=== PATIENT | male | born 1960 | race Caucasian/White ===

== ENCOUNTER 2020-01-18 07:57 | Outpatient (REF) | payer OTHER, SELFPAY ==
[2020-01-18 11:52] LABS: Alanine Aminotransferase 56 U/L (0-40); Albumin Level 4.6 g/dL (3.5-5.0); Alkaline Phosphatase 92 U/L (39-117); Aspartate Amino Transferase 49 U/L (5-37); Bilirubin Direct 0.3 mg/dL (0.0-0.5); Bilirubin Total 0.6 mg/dL (0.0-1.0); Cholesterol 148 mg/dL; HDL Cholesterol 46 mg/dL; LDL Cholesterol Calculated 85 mg/dl; Total Protein 7.1 g/dL (6.5-8.0); Triglycerides 87 mg/dL
== END 2020-01-18 07:58 | disposition home or self-care (01) ==
LOC: HO.HMGCLDS 07:57
PROVIDERS: PCP Internal Medicine; Visit Provider Internal Medicine
DX: E78.5 Hyperlipidemia, unspecified (principal)
CPT/HCPCS: 80061; 80076

== ENCOUNTER 2020-04-05 07:54 | Outpatient (REF) | payer OTHER, SELFPAY | END 2020-04-05 07:55 | disposition home or self-care (01) | LOC: HO.HMGCLDS 07:54 | PROVIDERS: PCP Internal Medicine; Visit Provider Internal Medicine | DX: Z20.822 Contact with and (suspected) exposure to COVID-19 (principal) | CPT/HCPCS: 36415; C9803; U0003; U0005 ==

== ENCOUNTER 2020-06-04 07:32 | Outpatient (REF) | payer OTHER, SELFPAY ==
[2020-06-04 11:59] LABS: Alanine Aminotransferase 36 U/L (0-40); Anion Gap 14 (12-20); Aspartate Amino Transferase 32 U/L (5-37); Blood Urea Nitrogen 16 mg/dL (9-16); Calcium 9.5 mg/dL (8.4-10.2); Carbon Dioxide 25 mmol/L (22-29); Chloride 102 mmol/L (96-108); Cholesterol 196 mg/dL; Estimated Glomerular Filt Rate > 60; Glucose Fasting 107 mg/dL (60-99); HDL Cholesterol 47 mg/dL; LDL Cholesterol Calculated 121 mg/dl; Potassium 4.3 mmol/L (3.3-5.1); Sodium 137 mmol/L (135-145); Triglycerides 144 mg/dL
== END 2020-06-04 07:33 | disposition home or self-care (01) ==
LOC: HO.HMGCLDS 07:32
PROVIDERS: PCP Internal Medicine; Visit Provider Internal Medicine
DX: E66.9 Obesity, unspecified (principal); E78.5 Hyperlipidemia, unspecified; I10 Essential (primary) hypertension
CPT/HCPCS: 36415; 80048; 80061; 84450; 84460

== ENCOUNTER 2020-11-19 06:46 | Outpatient (REF) | payer OTHER, SELFPAY ==
[2020-11-19 12:17] LABS: Alanine Aminotransferase 57 U/L (0-40); Anion Gap 11 (12-20); Aspartate Amino Transferase 41 U/L (5-37); Blood Urea Nitrogen 14 mg/dL (9-16); Calcium 9.5 mg/dL (8.4-10.2); Carbon Dioxide 27 mmol/L (22-29); Chloride 105 mmol/L (96-108); Cholesterol 211 mg/dL; Estimated Glomerular Filt Rate > 60; Glucose Fasting 117 mg/dL (60-99); HDL Cholesterol 44 mg/dL; LDL Cholesterol Calculated 136 mg/dl; Potassium 4.8 mmol/L (3.3-5.1); Sodium 138 mmol/L (135-145); Triglycerides 155 mg/dL
== END 2020-11-19 06:47 | disposition home or self-care (01) ==
LOC: HO.HMGCLDS 06:46
PROVIDERS: PCP Internal Medicine; Visit Provider Internal Medicine
DX: E66.9 Obesity, unspecified (principal); E78.5 Hyperlipidemia, unspecified; I10 Essential (primary) hypertension
CPT/HCPCS: 36415; 80048; 80061; 84450; 84460

== ENCOUNTER 2021-04-15 07:28 | Outpatient (REF) | payer OTHER, SELFPAY ==
[2021-04-15 11:45] LABS: Alanine Aminotransferase 71 U/L (0-40); Aspartate Amino Transferase 47 U/L (5-37); Cholesterol 203 mg/dL; HDL Cholesterol 41 mg/dL; LDL Cholesterol Calculated 130 mg/dl; Triglycerides 162 mg/dL
[2021-04-15 12:19] LABS: Estimated Average Glucose 128 mg/dL; Hemoglobin A1c % 6.1 %
== END 2021-04-15 07:29 | disposition home or self-care (01) ==
LOC: HO.HMGCLDS 07:28
PROVIDERS: Visit Provider Internal Medicine
DX: E78.5 Hyperlipidemia, unspecified (principal); I10 Essential (primary) hypertension; R73.01 Impaired fasting glucose
CPT/HCPCS: 36415; 80061; 83036; 84450; 84460

== ENCOUNTER 2021-10-24 15:03 | Outpatient (REF) | payer OTHER, SELFPAY ==
--- NOTE | ~2021-10-24 | XR_ITS ---
EXAMINATION: XR ANKLE, LEFT CLINICAL INFORMATION: Pain in the left foot. COMPARISON: None. TECHNIQUE: AP, lateral, and mortise views of the left ankle. FINDINGS: Small plantar calcaneal spur. Bones joints and soft tissues otherwise unremarkable. XR/XR ankle LT min 3V IMPRESSION: Small plantar calcaneal spur. Otherwise unremarkable.
== END 2021-10-24 15:04 | disposition home or self-care (01) ==
LOC: HO.HMGCX 15:03
PROVIDERS: PCP Internal Medicine; Visit Provider Internal Medicine
DX: M79.672 Pain in left foot (principal)
CPT/HCPCS: 73610

== ENCOUNTER 2021-12-09 07:35 | Outpatient (REF) | payer OTHER, SELFPAY ==
[2021-12-09 12:23] LABS: Alanine Aminotransferase 51 U/L (0-40); Albumin Level 4.5 g/dL (3.5-5.0); Alkaline Phosphatase 84 U/L (39-117); Anion Gap 16 (12-20); Aspartate Amino Transferase 36 U/L (5-37); Bilirubin Total 0.4 mg/dL (0.0-1.0); Blood Urea Nitrogen 15 mg/dL (9-16); Calcium 9.5 mg/dL (8.4-10.2); Carbon Dioxide 23 mmol/L (22-29); Chloride 104 mmol/L (96-108); Cholesterol 193 mg/dL; Estimated Glomerular Filt Rate > 60; Glucose Fasting 108 mg/dL (60-99); HDL Cholesterol 48 mg/dL; LDL Cholesterol Calculated 124 mg/dl; Potassium 4.6 mmol/L (3.3-5.1); Sodium 138 mmol/L (135-145); Triglycerides 109 mg/dL
[2021-12-09 12:27] LABS: Vitamin D 25-OH Total 26.1 ng/mL (>30)
[2021-12-09 12:29] LABS: Estimated Average Glucose 128 mg/dL; Hemoglobin A1c % 6.1 %
== END 2021-12-09 07:36 | disposition home or self-care (01) ==
LOC: HO.HMGCLDS 07:35
PROVIDERS: PCP Internal Medicine; Visit Provider Internal Medicine
DX: Z00.01 Encounter for general adult medical examination with abnormal findings (principal); E78.5 Hyperlipidemia, unspecified; E66.9 Obesity, unspecified; I10 Essential (primary) hypertension; R73.01 Impaired fasting glucose
CPT/HCPCS: 36415; 80053; 80061; 82306; 83036

== ENCOUNTER 2022-04-18 07:33 | Outpatient (REF) | payer OTHER, SELFPAY ==
[2022-04-18 12:34] LABS: Estimated Average Glucose 128 mg/dL; Hemoglobin A1c % 6.1 %
[2022-04-18 12:55] LABS: Alanine Aminotransferase 78 U/L (0-40); Anion Gap 15 (12-20); Aspartate Amino Transferase 59 U/L (5-37); Blood Urea Nitrogen 16 mg/dL (9-16); Calcium 9.1 mg/dL (8.4-10.2); Carbon Dioxide 24 mmol/L (22-29); Chloride 104 mmol/L (96-108); Cholesterol 203 mg/dL; Estimated Glomerular Filt Rate > 60; Glucose Fasting 109 mg/dL (60-99); HDL Cholesterol 48 mg/dL; LDL Cholesterol Calculated 140 mg/dl; Potassium 4.3 mmol/L (3.3-5.1); Sodium 139 mmol/L (135-145); Triglycerides 76 mg/dL
== END 2022-04-18 07:34 | disposition home or self-care (01) ==
LOC: HO.HMGCLDS 07:33
PROVIDERS: PCP Internal Medicine; Visit Provider Internal Medicine
DX: E55.9 Vitamin D deficiency, unspecified (principal); E66.9 Obesity, unspecified; E78.5 Hyperlipidemia, unspecified; R73.01 Impaired fasting glucose; I10 Essential (primary) hypertension
CPT/HCPCS: 36415; 80048; 80061; 83036; 84450; 84460

== ENCOUNTER 2023-04-03 06:03 | Outpatient (REF) | payer OTHER, SELFPAY ==
[2023-04-03 10:44] LABS: Estimated Average Glucose 123 mg/dL; Hemoglobin A1c % 5.9 % (<6.0)
[2023-04-03 11:14] LABS: Alanine Aminotransferase 59 U/L (0-40); Anion Gap 14 (12-20); Aspartate Amino Transferase 44 U/L (5-37); Blood Urea Nitrogen 12 mg/dL (9-16); Calcium 9.6 mg/dL (8.4-10.2); Carbon Dioxide 24 mmol/L (22-29); Chloride 106 mmol/L (96-108); Cholesterol 149 mg/dL (<200); Estimated Glomerular Filt Rate > 60; Glucose Fasting 124 mg/dL (60-99); HDL Cholesterol 49 mg/dL (>40); LDL Cholesterol Calculated 85 mg/dL (<100); Potassium 4.4 mmol/L (3.3-5.1); Sodium 140 mmol/L (135-145); Triglycerides 76 mg/dL (<150)
[2023-04-03 11:30] LABS: Vitamin D 25-OH Total 32.6 ng/mL (>30)
== END 2023-04-03 06:04 | disposition home or self-care (01) ==
LOC: HO.HMGCLDS 06:03
PROVIDERS: PCP Internal Medicine; Visit Provider Internal Medicine
DX: I10 Essential (primary) hypertension (principal); R73.01 Impaired fasting glucose; E66.9 Obesity, unspecified; E78.5 Hyperlipidemia, unspecified; E55.9 Vitamin D deficiency, unspecified
CPT/HCPCS: 36415; 80048; 80061; 82306; 83036; 84450; 84460

== ENCOUNTER 2023-04-06 11:29 | Outpatient (AMB) | payer OTHER, SELFPAY ==
[2023-04-06 12:00] VITALS: BP 120/72; PULSE 65; O2SAT 95; BMI 32.6
--- NOTE | 2023-04-06 12:00 | A.OFFPC_ITS ---
Vital Signs 04/06/23 12:00 Height 5 ft 4 in Weight 190 lb BMI 32.6 BP 120/72 Blood Pressure Location Rt brachial Position Sitting Pulse 65 Pulse Source Pulse Oximeter Pulse Oximetry (%) 95 Oxygen Delivery Method Room Air Intake Visit Reasons: Followup BP Intake Note: Pt is here today for his b/p f/u Allergies No Known Allergies Allergy (Verified 04/06/23 12:27) Medication List - Last Reconciled 04/06/23 by Dalila Vincent MD diclofenac sodium 75 mg PO BID lisinopril 5 mg PO DAILY rosuvastatin 5 mg PO DAILY Tobacco use date assessed: 04/06/23 Dental Screening Dental Screen Date: 04/06/23 Did you have a dental visit in the last 12 months?: No Was dental information given to patient?: No HPI Followup BP HPI Details 63-year-old male with hypertension hyper lipidemia currently here for follow-up. Takes lisinopril 5 mg daily and rosuvastatin 5 mg once a day. Has been compliant with diet. Recent fasting labs showed fasting lipids and electrolytes and renal function are all within normal limits. He had elevations in his fasting glucose, but hemoglobin A1c came back at 5.9%. Has been feeling well except for recurrent pain and stiffness in both knees, which is progressively getting worse. There are times that it feels like his knees would give out while walking. 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 [facility] Medical History (Updated 04/06/23 @ 12:38 by Dalila Vincent MD) Chronic pain of both knees Vitamin D deficiency COVID-19 vaccination declined Impaired fasting glucose Obesity (BMI 30.0-34.9) Essential hypertension Dyslipidemia H/O fracture of forearm Surgical History H/O inguinal hernia repair Family History Father No problems noted. Mother No problems noted. Brother Hx of myocardial infarction Social History Housing: Apartment Alcohol intake: never Patient Tobacco Use Status: Never used Tobacco e-Cigarette/Vaping Use: Never Used service: No Current occupational status: employed Cognitive needs: No Hearing needs: No Vision needs: No Questionnaire PHQ-9 Over the last 2 weeks, how often have you been bothered by any of the following problems? 1. Little interest or pleasure in doing things: not at all 2. Feeling down, depressed, or hopeless: not at all 3. Trouble falling or staying asleep, or sleeping too much: not at all 4. Feeling tired or having little energy: not at all 5. Poor appetite or overeating: not at all 6. Feeling bad about yourself - or that you are a failure or have let yourself or your family down: not at all 7. Trouble concentrating on things, such as reading the newspaper or watching television: not at all 8. Moving or speaking so slowly that other people could have noticed. Or the opposite - being so fidgety or restless that you have been moving around a lot more than usual: not at all 9. Thoughts that you would be better off or of hurting yourself in some way: not at all Total score: 0 Depression Screening Interpretation: Negative Depression Screening Done: Yes 66264 - PHQ-9 Billing: Yes Source: Developed by Drs. Triston Ball, Kelsey Craft, Jorge Lezama and colleagues, with an educational lance from [employer]. Thrive Questionnaire Date Thrive assessed: 04/06/23 I am a: Patient What is your living situation today?: I have a steady place to live Within the past 12 months, did the food you bought not last and you didn't have the money to get more?: Never true Within the past 12 months, did you worry whether your food would run out before you got money to buy more?: Never true Do you have trouble paying for medicines?: No Do you have trouble getting transportation to medical appointments?: No Do you have trouble paying your heating and electricity bill?: No Do you have trouble taking care of your child, family member or friend?: No Do you have trouble with day-to-day activities such as bathing, preparing meals, shopping, managing finances, etc.?: No Are you currently unemployed and looking for a job?: No Are you interested in more education?: No THRIVE Score: 0 AUDIT C Alcohol Use Questionnaire (AUDIT-C) 1. How often do you have a drink containing alcohol?: Never Total Score: 0 LUIS-7 AMB Questionnaire LUIS-7 Date LUIS - 7 assessed: 04/06/23 Feeling nervous, anxious, or on edge: 0 = Not at all Not being able to stop or control worryin = Not at all Worrying too much about different things: 0 = Not at all Trouble relaxin = Not at all Being so restless that it is hard to sit still: 0 = Not at all Becoming easily annoyed or irritable: 0 = Not at all Feeling afraid as if something awful might happen: 0 = Not at all Total LUIS-7 score (0-4 normal; 5-9 mild; 10-14 moderate; 15-21 severe): 0 Source: Developed by Drs. Triston Ball, Kelsey Craft, Jorge Lezama and colleagues, with an educational lance from [employer]. LUIS-7 Assessment Billing LUIS-7 Assessment Tool: LUIS-7 Assessment 94613 Review of Systems Const Denies body aches, Denies fatigue, Denies fever(s), Denies headache(s) and Denies weakness Eyes Denies change in vision ENT Denies dizziness, Denies headache(s) and Denies nasal congestion Card Denies chest pain, Denies lightheadedness, Denies palpitations and Denies dyspnea Resp Denies chest congestion, Denies cough, Denies dyspnea and Denies wheezing GI Denies abdominal pain, Denies change in bowel habits and Denies heartburn Denies dysuria, Denies urinary frequency and Denies urinary urgency Musc Reports as per HPI, Denies myalgias and Reports stiffness Neuro Denies dizziness, Denies headache(s) and Denies weakness Psych Reports no additional complaints Endo Denies fatigue, Denies polydipsia, Denies polyuria and Denies palpitations Sesar/Lymph Denies easy bruising Aller/Immun Denies seasonal rhinorrhea and Denies wheezing Physical exam (Primary Care) Vital Signs: Last Vital Signs Pulse 65 04/06/23 12:00 BP 120/72 04/06/23 12:00 Pulse Ox 95 04/06/23 12:00 Oxygen Delivery Method Room Air 04/06/23 12:00 BMI result Body Mass Index 32.6 BMI Assessment/Plan discussion: High BMI High, discussed plan: lifestyle, weight reduction, dietary and physical activity Tobacco/Smoking Status: Tobacco use Status Tobacco use date assessed 04/06/23 04/06/23 12:06 Patient Tobacco Use Status Never used Tobacco 04/06/23 12:01 e-Cigarette/Vaping Use Never Used 04/06/23 12:01 PHQ-9: PHQ-9 Score PHQ-9: Total score 0 04/06/23 12:32 Depression Screening Interpretation: Negative Thrive Assessment: Date of Thrive Assessment Date Thrive assessed 04/06/23 04/06/23 12:06 Const General: no acute distress and alert Nutritional Appearance: obese Orientation/consciousness: patient oriented x3 HENMT Face and sinus: Yes face symmetric Mouth: Normal oral and palatal mucosa present and moist mucous membranes Eyes General: appearance normal, both eyes and all related structures Neck Neck: Yes full ROM, Yes no lymphadenopathy and Yes supple Thyroid: Thyroid normal Resp Effort & Inspection: normal respiratory effort and able to speak in complete sentences Auscultation: clear to auscultation bilaterally Cardio Other: S1-S2 present regular rate and rhythm GI Other: Normal bowel sounds, soft, obese, nontender, no mass palpated Back/Spine/Pelvis Other: No CVA or back tenderness Neuro General: patient oriented x3, gait normal, moves all extremities, Normal light touch and pain sensation, no focal motor deficits and CN's II-XI intact bilaterally Extrem General: Yes full ROM, Yes no joint enlargement, Yes no clubbing, cyanosis or edema, Yes no calf tenderness and Yes normal gait Right lower extremity: knee Details: crepitus Location: at the patella Left lower extremity: knee Details: crepitus Location: at the patella Results Reviewed Results Reviewed: RUN: 04/06/23 1227 PAGE 1 [facility] [address] [place] [id number] Garage Manager: Aníbal Andersen M.D. Specimen Inquiry Name: Triston Machuca Age/Sex: 63/M : 1960 Unit#: [id number] Attend Dr: Dalila Vincent MD Re04/03/23 Status: DEP REF [facility] Disch: SPEC : [id number] OWEN: 04/03/23 STATUS: COMP REQ : [id number] RECD: 04/03/23-[address]: Dalila Vincent MD COMP: 04/03/23 ENTERED: 04/03/[address]: ORDERED: Met Prof Fast, AST, ALT, Lipid Panel, Vitamin D 25-OH Test Result Flag Reference Sodium 140 135-145 mmol/L Potassium 4.4 3.3-5.1 mmol/L CL 106 96-108 mmol/L CO2 24 22-29 mmol/L Gap 14 12-20 BUN 12 9-16 mg/dL Creat 0.92 0.5-1.4 mg/dL EGFR > 60 NOTE: For -[place] individuals, multiply the result by 1.210. Chronic Kidney Disease: Estimated GFR < 60 mL/min/1.73m2 Severe Kidney Disease: Estimated GFR < 15 mL/min/1.73m2 FBS 124 H 60-99 mg/dL A fasting glucose from 100-125 mg/dl is considered impaired (pre-diabetes). CA 9.6 8.4-10.2 mg/dL AST (GOT) 44 H 5-37 U/L ALT (GPT) 59 H 0-40 U/L Triglyceride 76 <150 mg/dL Desirable Triglyceride: less than 150 mg/dL Borderline High Triglyceride 150-199 mg/dL High Triglyceride: 200-499 mg/dL Very High Triglyceride: greater than or equal to 5OO mg/dL Cholesterol 149 <200 mg/dL Desirable Cholesterol: less than 200 mg/dL Borderline High Cholesterol: 200-239 mg/dL High Cholesterol: greater than 239 mg/dL LDL Calculated 85 <100 mg/dL Desirable LDL: less than 100 mg/dL Near Optimal/Above Optimal LDL: 110-129 mg/dL Borderline High LDL: 130-159 mg/dL High LDL: 160-189 mg/dL Very High LDL: greater than or equal to 190 mg/dL HDL 49 >40 mg/dL Desirable HDL: greater than 40 mg/dL Note: This HDL assay may give artificially low results in patients with liver disease. Vit D 25-OH Tot 32.6 >30 ng/mL Health Based Reference Values* < 20 ng/mL Deficient 20-30 ng/mL Insufficient > 30 ng/mL Sufficient Laboratory Tests 04/03/23 06:24 Estimat Average Glucose 123 Hemoglobin A1c % 5.9 Assessment and Plan Assessment & Plan (1) Essential hypertension: Code(s): I10 - Essential (primary) hypertension Plan: Blood pressure at goal of less than 130/80. Continue with lisinopril 5 mg once a day in a.m. with breakfast. Reinforced importance of following a low sodium diet, getting regular exercise, and lowering stress levels. (2) Dyslipidemia: Code(s): E78.5 - Hyperlipidemia, unspecified Plan: Reviewed recent fasting lipid profile with patient with levels within normal limits . Continue with rosuvastatin 5 mg once a day , in addition to adherence to low-cholesterol diet and regular exercise, at least 30 minutes 3 to 4 times a week. Advised patient to make healthy food choices, eat more fruits, vegetables, whole grains, wild caught fish and low-fat dairy. Limit amount of meat and fried or fatty food products, as well as processed foods and fast foods. Follow-up scheduled with repeat fasting lipid panel in 9 months. (3) Chronic pain of both knees: Code(s): M25.561 - Pain in right knee; M25.562 - Pain in left knee; G89.29 - Other chronic pain Plan: Ordered x-ray of both knees, referred for orthopedic consult. May continue taking Tylenol arthritis every 6 hours as needed for pain and reserve diclofenac tablets only as needed for severe pain. (4) Impaired fasting glucose: Code(s): R73.01 - Impaired fasting glucose Plan: Fasting blood sugar is 120 4 mg/dL. Impaired glucose metabolism makes you at risk for developing diabetes mellitus type 2, as well as heart attack and stroke later on. Lifestyle changes at just weight loss, healthy eating habits, and regular exercise are important, and can prevent the progression to diabetes Orders: Orders XR knee standing BI Today G89.29 - Other chronic pain, M25.561 - Pain in right knee, M25.562 - Pain in left knee Basic Metabolic Panel Fasting 12/11/23 E66.9 - Obesity, unspecified, E78.5 - Hyperlipidemia, unspecified, G89.29 - Other chronic pain, I10 - Essential (primary) hypertension, M25.561 - Pain in right knee, M25.562 - Pain in left knee, R73.01 - Impaired fasting glucose Vitamin D 25-OH Total 12/11/23 E66.9 - Obesity, unspecified, E78.5 - Hyperlipidemia, unspecified, G89.29 - Other chronic pain, I10 - Essential (primary) hypertension, M25.561 - Pain in right knee, M25.562 - Pain in left knee, R73.01 - Impaired fasting glucose Lipid Panel 12/11/23 E66.9 - Obesity, unspecified, E78.5 - Hyperlipidemia, unspecified, G89.29 - Other chronic pain, I10 - Essential (primary) hypertension, M25.561 - Pain in right knee, M25.562 - Pain in left knee, R73.01 - Impaired fasting glucose Alanine Aminotransferase 12/11/23 E66.9 - Obesity, unspecified, E78.5 - Hyperlipidemia, unspecified, G89.29 - Other chronic pain, I10 - Essential (primary) hypertension, M25.561 - Pain in right knee, M25.562 - Pain in left knee, R73.01 - Impaired fasting glucose Aspartate Amino Transferase 12/11/23 E66.9 - Obesity, unspecified, E78.5 - Hyperlipidemia, unspecified, G89.29 - Other chronic pain, I10 - Essential (primary) hypertension, M25.561 - Pain in right knee, M25.562 - Pain in left knee, R73.01 - Impaired fasting glucose PSA,Total (Free>4and<10) 12/11/23 E66.9 - Obesity, unspecified, E78.5 - Hyperlipidemia, unspecified, G89.29 - Other chronic pain, I10 - Essential (primary) hypertension, M25.561 - Pain in right knee, M25.562 - Pain in left knee, R73.01 - Impaired fasting glucose Complete Blood Count Auto Diff 12/11/23 E66.9 - Obesity, unspecified, E78.5 - Hyperlipidemia, unspecified, G89.29 - Other chronic pain, I10 - Essential (primary) hypertension, M25.561 - Pain in right knee, M25.562 - Pain in left kne e, R73.01 - Impaired fasting glucose Hemoglobin A1c 12/11/23 R73.01 - Impaired fasting glucose Referrals Orthopedics Referral G89.29 - Other chronic pain, M25.561 - Pain in right knee, M25.562 - Pain in left knee Medications: Refilled rosuvastatin 5 mg PO DAILY 90 tabs 3RF diclofenac sodium 75 mg PO BID 30 tabs 0RF pain Coding Level of Care Code Est Pt Level 4 (93486) Diagnoses Essential hypertension I10 Dyslipidemia E78.5 Chronic pain of both knees M25.561; M25.562; G89.29 Impaired fasting glucose R73.01 Additional Codes LUIS-7 Assessment Billing - LUIS-7 Assessment Tool: LUIS-7 Assessment 49560 ([id number])
== END 2023-04-06 16:02 | disposition home or self-care (01) ==
PROVIDERS: PCP Internal Medicine; Visit Provider Internal Medicine
DX: I10 Essential (primary) hypertension (principal); E78.5 Hyperlipidemia, unspecified; M25.561 Pain in right knee; M25.562 Pain in left knee; G89.29 Other chronic pain; R73.01 Impaired fasting glucose
CPT/HCPCS: 99214

== ENCOUNTER 2023-04-06 12:41 | Outpatient (REF) | payer OTHER, SELFPAY ==
--- NOTE | ~2023-04-06 | XR_ITS ---
EXAMINATION: XR KNEE AP STANDING VIEWS OF BILATERAL CLINICAL INFORMATION: Pain right knee. COMPARISON: 10/28/1999 bilateral. TECHNIQUE: AP bilateral standing view and lateral views of the knees was obtained. FINDINGS: Right Knee: The bones are diffusely demineralized. Trace joint effusion. Narrowing of the tricompartments with degenerative changes most notable in the medial compartment. Small tricompartmental osteophytes. Left Knee: Bones are diffusely demineralized. No significant joint effusion. Mild narrowing of the lateral compartment. Small calcification along the medial aspect of the medial femoral condyle of indeterminate age and etiology. XR/XR knee standing BI IMPRESSION: 1. Moderate degenerative changes in the right knee. 2. Mild degenerative changes in the left knee.
== END 2023-04-06 12:42 | disposition home or self-care (01) ==
LOC: HO.HMGCX 12:41
PROVIDERS: PCP Internal Medicine; Visit Provider Internal Medicine
DX: M25.561 Pain in right knee (principal); M25.562 Pain in left knee; G89.29 Other chronic pain
CPT/HCPCS: 73565

== ENCOUNTER 2024-12-06 10:53 | Outpatient (AMB) | payer OTHER, SELFPAY ==
[2024-12-06 11:11] VITALS: BP 162/92; PULSE 59; RESP 16; TEMP 36.6; O2SAT 95; BMI 30.9
--- NOTE | 2024-12-06 11:11 | A.OFFPC_ITS ---
Vital Signs 12/06/24 11:11 Height 5 ft 4 in Weight 180 lb BMI 30.9 BP 162/92 H Blood Pressure Location Rt brachial Position Sitting Respiration 16 Pulse 59 Pulse Source Pulse Oximeter Temp 97.8 F Temp Source Oral Pulse Oximetry (%) 95 Oxygen Delivery Method Room Air Intake Visit Reasons: to keep getting my bp medicine Intake Note: Pt is here today request b/p medication [employer] Required: No Allergies No Known Allergies Allergy (Verified 12/06/24 11:33) Medication List - Last Reconciled 12/06/24 by Dalila Vincent MD lisinopril 5 mg PO DAILY rosuvastatin 5 mg PO DAILY Tobacco use date assessed: 12/06/24 Dental Screening Dental Screen Date: 12/06/24 Did you have a dental visit in the last 12 months?: No Did you have a dental problem in the last 6 months where you did not have access to dental care?: No Was dental information given to patient?: Patient declined HPI to keep getting my bp medicine HPI Details The patient is a 64-year-old male with history of hypertension, has been off his lisinopril for almost a month. He reports significant lifestyle improvements, including a 10-pound weight loss. His exercise regimen includes walking 5 miles a day and lifting weights, although he has temporarily stopped weightlifting due to a recent muscle injury. He does not drink alcohol or smoke. His knee pain has improved since he left his job involving heavy lifting in April, and he now rarely takes pain medication for his arthritis. He recently sustained a muscle tear while bench pressing. Regarding preventative care, the patient reports having had a tetanus shot. He has received four COVID-19 vaccinations and has not had COVID-19 or the flu. He declines a flu shot at this timebut will consider a pneumonia vaccine at age 66. [facility] Medical History Chronic pain of both knees Vitamin D deficiency COVID-19 vaccination declined Impaired fasting glucose Obesity (BMI 30.0-34.9) Essential hypertension Dyslipidemia H/O fracture of forearm Surgical History H/O inguinal hernia repair Family History Father No problems noted. Mother No problems noted. Brother Hx of myocardial infarction Social History Housing: Apartment Alcohol intake: never Patient Tobacco Use Status: Never used Tobacco e-Cigarette/Vaping Use: Never Used service: No Current occupational status: employed and disabled Cognitive needs: No Hearing needs: No Vision needs: No Questionnaire PHQ-9 Over the last 2 weeks, how often have you been bothered by any of the following problems? 1. Little interest or pleasure in doing things: not at all 2. Feeling down, depressed, or hopeless: not at all 3. Trouble falling or staying asleep, or sleeping too much: not at all 4. Feeling tired or having little energy: not at all 5. Poor appetite or overeating: not at all 6. Feeling bad about yourself - or that you are a failure or have let yourself or your family down: not at all 7. Trouble concentrating on things, such as reading the newspaper or watching television: not at all 8. Moving or speaking so slowly that other people could have noticed. Or the opposite - being so fidgety or restless that you have been moving around a lot more than usual: not at all 9. Thoughts that you would be better off or of hurting yourself in some way: not at all Total score: 0 Depression Screening Interpretation: Negative Depression Screening Done: Yes 93548 - PHQ-9 Billing: Yes Source: Developed by Drs. Triston Ball, Kelsey Craft, Jorge Lezama and colleagues, with an educational lance from [email or web address]. Thrive Questionnaire Date Thrive assessed: 12/06/24 I am a: Patient What is your living situation today?: I have a steady place to live Within the past 12 months, did the food you bought not last and you didn't have the money to get more?: Never true Within the past 12 months, did you worry whether your food would run out before you got money to buy more?: Never true Do you have trouble paying for medicines?: No Do you have trouble getting transportation to medical appointments?: No Do you have trouble paying your heating and electricity bill?: No Do you have trouble taking care of your child, family member or friend?: No Do you have trouble with day-to-day activities such as bathing, preparing meals, shopping, managing finances, etc.?: No Are you currently unemployed and looking for a job?: No Are you interested in more education?: No Please select the resources that you would like help with: None Currently or been in a relationship where the following occur: No concerns reported THRIVE Score: 0 AUDIT C Alcohol Use Questionnaire (AUDIT-C) 1. How often do you have a drink containing alcohol?: Never 3. How often do you have six or more drinks on one occasion?: Never Total Score: 0 LUIS-7 AMB Questionnaire LUIS-7 Date LUIS - 7 assessed: 12/06/24 Feeling nervous, anxious, or on edge: 0 = Not at all Not being able to stop or control worryin = Not at all Worrying too much about different things: 0 = Not at all Trouble relaxin = Not at all Being so restless that it is hard to sit still: 0 = Not at all Becoming easily annoyed or irritable: 0 = Not at all Feeling afraid as if something awful might happen: 0 = Not at all Total LUIS-7 score (0-4 normal; 5-9 mild; 10-14 moderate; 15-21 severe): 0 Source: Developed by Drs. Triston Ball, Kelsey Craft, Jorge Lezama and colleagues, with an educational lance from [email or web address]. LUIS-7 Assessment Billing LUIS-7 Assessment Tool: LUIS-7 Assessment 59295 Review of Systems Const Denies body aches, Denies fatigue, Denies fever(s), Denies headache(s) and Denies weakness Eyes Denies change in vision ENT Denies dizziness, Denies headache(s) and Denies nasal congestion Card Denies chest pain, Denies lightheadedness, Denies palpitations and Denies dyspnea Resp Denies chest congestion, Denies cough, Denies dyspnea and Denies wheezing GI Denies abdominal pain, Denies change in bowel habits and Denies heartburn Denies dysuria, Denies urinary frequency and Denies urinary urgency Musc Reports as per HPI, Denies myalgias and Reports stiffness Neuro Denies dizziness, Denies headache(s) and Denies weakness Psych Reports no additional complaints Endo Denies fatigue, Denies polydipsia, Denies polyuria and Denies palpitations Sesar/Lymph Denies easy bruising Aller/Immun Denies seasonal rhinorrhea and Denies wheezing Physical exam (Primary Care) Vital Signs: Last Vital Signs Temp 97.8 F 12/06/24 11:11 Pulse 59 12/06/24 11:11 Resp 16 12/06/24 11:11 BP 162/92 H 12/06/24 11:11 Pulse Ox 95 12/06/24 11:11 Oxygen Delivery Method Room Air 12/06/24 11:11 BMI result Body Mass Index 30.9 BMI Assessment/Plan discussion: High BMI High, discussed plan: lifestyle, weight reduction, dietary and physical activity Tobacco/Smoking Status: Tobacco use Status Tobacco use date assessed 12/06/24 12/06/24 11:18 Patient Tobacco Use Status Never used Tobacco 12/06/24 11:18 e-Cigarette/Vaping Use Never Used 12/06/24 11:18 PHQ-9: PHQ-9 Score PHQ-9: Total score 0 12/11/24 22:17 Depression Screening Interpretation: Negative Thrive Assessment: Date of Thrive Assessment Date Thrive assessed 12/06/24 12/11/24 22:09 Currently or been in a relationship where the following occur: No concerns reported Const General: no acute distress and alert Nutritional Appearance: obese Orientation/consciousness: patient oriented x3 HENMT Face and sinus: Yes face symmetric Mouth: Normal oral and palatal mucosa present and moist mucous membranes Eyes General: appearance normal, both eyes and all related structures Neck Neck: Yes full ROM, Yes no lymphadenopathy and Yes supple Thyroid: Thyroid normal Resp Effort & Inspection: normal respiratory effort and able to speak in complete sentences Auscultation: clear to auscultation bilaterally Cardio Other: S1-S2 present regular rate and rhythm GI Other: Normal bowel sounds, soft, obese, nontender, no mass palpated Back/Spine/Pelvis Other: No CVA or back tenderness Neuro General: patient oriented x3, gait normal, moves all extremities, Normal light touch and pain sensation, no focal motor deficits and CN's II-XI intact bilaterally Extrem General: Yes full ROM, Yes no joint enlargement, Yes no clubbing, cyanosis or edema, Yes no calf tenderness and Yes normal gait Psych Appearance: grossly normal and well kempt Affect: normal affect Coding Level of Care Code Est Pt Level 4 (45065) Complex EM visit Add On G2211 Diagnoses Dyslipidemia E78.5 Essential hypertension I10 Impaired fasting glucose R73.01 Additional Codes LUIS-7 Assessment Billing - LUIS-7 Assessment Tool: LUIS-7 Assessment 60256 ([id number]) PHQ-9 - 57970 - PHQ-9 Billing: Yes ([id number]) Assessment & Plan Assessment & Plan (1) Dyslipidemia: Code(s): E78.5 - Hyperlipidemia, unspecified Category: Medical (2) Essential hypertension: Code(s): I10 - Essential (primary) hypertension Category: Medical (3) Impaired fasting glucose: Code(s): R73.01 - Impaired fasting glucose Category: Medical Plan - Essential Hypertension Patient requires a refill for his blood pressure medication.The patient is actively engaged in improving his health, having lost 10 pounds through diet and exercise.He will be encouraged to continue his healthy lifestyle. A 90-day supply of Lisinopril will be sent to the [facility] on [facility]. He will monitor his blood pressure at home, with a target of less than 130/80 mmHg, and will follow up for a blood pressure check after restarting the medication. -. Hyperlipidemia The patient is also due for a refill of his cholesterol medication. A 90-day supply of rosuvastatin sent to his pharmacy, and his cholesterol levels will be assessed with the ordered labs. - Knee Pain and Arthritis Knee symptoms have improved with weight loss, cessation of heavy lifting, and regular walking. He will be encouraged to continue these measures. - Muscle Strain Patient recently tore a muscle while bench pressing. He was advised to stretch before exercising and start with lower weights to prevent future injury. - impaired fasting glucose - Immunizations The patient has had four COVID-19 shots and has his tetanus shot up to date. He declined the flu shot and will consider the pneumonia vaccine at age 66 . fasting blood work for cholesterol, glucose, kidney function, electrolytes, a nd PSA level ordered A follow-up appointment for a physical exam is scheduled for January. Patient was informed and verbally consented to the use of an ambient scribe for clinic note documentation during this visit. Orders: Orders Hemoglobin and Hematocrit 12/06/24 E66.9 - Obesity, unspecified, E78.5 - Hyperlipidemia, unspecified, I10 - Essential (primary) hypertension, R73.01 - Impaired fasting glucose Hemoglobin A1c 12/06/24 E66.9 - Obesity, unspecified, E78.5 - Hyperlipidemia, unspecified, I10 - Essential (primary) hypertension, R73.01 - Impaired fasting glucose Vitamin D 25-OH Total 12/06/24 E66.9 - Obesity, unspecified, E78.5 - Hyperlipidemia, unspecified, I10 - Essential (primary) hypertension, R73.01 - Impaired fasting glucose PSA,Total (Free>4and<10) 12/06/24 Z12.5 - Encounter for screening for malignant neoplasm of prostate Alanine Aminotransferase 12/06/24 E66.9 - Obesity, unspecified, E78.5 - Hyperlipidemia, unspecified, I10 - Essential (primary) hypertension, R73.01 - Impaired fasting glucose Aspartate Amino Transferase 12/06/24 E66.9 - Obesity, unspecified, E78.5 - Hyperlipidemia, unspecified, I10 - Essential (primary) hypertension, R73.01 - Impaired fasting glucose Basic Metabolic Panel Fasting 12/06/24 E66.9 - Obesity, unspecified, E78.5 - Hyperlipidemia, unspecified, I10 - Essential (primary) hypertension, R73.01 - Impaired fasting glucose Lipid Panel 12/06/24 E66.9 - Obesity, unspecified, E78.5 - Hyperlipidemia, unspecified, I10 - Essential (primary) hypertension, R73.01 - Impaired fasting glucose Medications: Refilled rosuvastatin 5 mg PO DAILY 90 tabs 3RF lisinopril 5 mg PO DAILY 90 tabs 1RF
== END 2024-12-06 11:43 | disposition home or self-care (01) ==
LOC: HO.HMCC 10:55
PROVIDERS: PCP Internal Medicine; Visit Provider Internal Medicine
DX: E78.5 Hyperlipidemia, unspecified (principal); I10 Essential (primary) hypertension; R73.01 Impaired fasting glucose

== ENCOUNTER 2024-12-06 10:53 | Outpatient (REF) | payer OTHER, SELFPAY ==
[2024-12-06 13:40] LABS: Hematocrit 44.5 % (42.0-52.0); Hemoglobin 15.4 g/dl (14.0-18.0)
[2024-12-06 14:06] LABS: Alanine Aminotransferase 61 U/L (0-40); Anion Gap 11 (12-20); Aspartate Amino Transferase 49 U/L (5-37); Blood Urea Nitrogen 14 mg/dL (9-16); Calcium 9.7 mg/dL (8.4-10.2); Carbon Dioxide 26 mmol/L (22-29); Chloride 106 mmol/L (96-108); Cholesterol 242 mg/dL (<200); Estimated Glomerular Filt Rate > 60; HDL Cholesterol 42 mg/dL (>40); Potassium 4.4 mmol/L (3.3-5.1); Sodium 139 mmol/L (135-145); Triglycerides 172 mg/dL (<150)
[2024-12-06 14:10] LABS: PSA,Total (Free>4and<10) 0.36 ng/mL (0.00-4.00)
== END 2024-12-06 10:54 | disposition home or self-care (01) ==
LOC: HO.HMGCLDS 10:53
PROVIDERS: PCP Internal Medicine; Visit Provider Internal Medicine
DX: Z12.5 Encounter for screening for malignant neoplasm of prostate (principal); I10 Essential (primary) hypertension; E78.5 Hyperlipidemia, unspecified; R73.01 Impaired fasting glucose; E66.9 Obesity, unspecified; Z68.30 Body mass index [BMI] 30.0-30.9, adult; Z79.899 Other long term (current) drug therapy
CPT/HCPCS: 36415; 80048; 80061; 82306; 83036; 84153; 84450; 84460; 85014; 85018; 96127; 99212

== ENCOUNTER 2025-02-06 11:25 | Outpatient (REF) | payer OTHER, SELFPAY ==
[2025-02-06 14:55] LABS: Alanine Aminotransferase 49 U/L (0-40); Albumin Level 4.8 g/dL (3.5-5.0); Alkaline Phosphatase 85 U/L (39-117); Anion Gap 12 (12-20); Aspartate Amino Transferase 49 U/L (5-37); Blood Urea Nitrogen 16 mg/dL (9-16); Calcium 9.5 mg/dL (8.4-10.2); Carbon Dioxide 25 mmol/L (22-29); Chloride 106 mmol/L (96-108); Cholesterol 172 mg/dL (<200); Estimated Glomerular Filt Rate > 60; HDL Cholesterol 48 mg/dL (>40); Potassium 3.8 mmol/L (3.3-5.1); Sodium 139 mmol/L (135-145); Total Protein 7.5 g/dL (6.5-8.0); Triglycerides 132 mg/dL (<150)
== END 2025-02-06 11:26 ==
LOC: HO.HMGCLDS 11:25
PROVIDERS: PCP Internal Medicine; Visit Provider Internal Medicine
DX: I10 Essential (primary) hypertension (principal); E78.5 Hyperlipidemia, unspecified; R73.01 Impaired fasting glucose; R74.8 Abnormal levels of other serum enzymes
CPT/HCPCS: 36415; 80053; 80061

== ENCOUNTER 2025-02-08 07:53 | Outpatient (AMB) | payer OTHER, SELFPAY ==
[2025-02-08 07:59] VITALS: BP 132/80; PULSE 65; RESP 17; TEMP 36.7; O2SAT 97; BMI 27.2
--- NOTE | 2025-02-08 07:59 | A.OFFPC_ITS ---
Vital Signs 02/08/25 07:59 Height 5 ft 8 in Weight 179 lb BMI 27.2 BP 132/80 Blood Pressure Location Lt brachial Position Sitting Respiration 17 Pulse 65 Temp 98.1 F Temp Source Oral Pulse Oximetry (%) 97 Oxygen Delivery Method Room Air Intake Visit Reasons: PE Intake Note: Pt is here today for his annual physical. Allergies No Known Allergies Allergy (Verified 02/08/25 08:28) Medication List - Last Reconciled 02/08/25 by Dalila Vincent MD lisinopril 5 mg PO DAILY rosuvastatin 5 mg PO DAILY Tobacco use date assessed: 02/08/25 Dental Screening Dental Screen Date: 02/08/25 Did you have a dental visit in the last 12 months?: Yes Did you have a dental problem in the last 6 months where you did not have access to dental care?: No Was dental information given to patient?: Patient has dentist HPI PE HPI Details The patient is a 64-year-old male with past medical history significant for hypertension and dyslipidemia, presenting for his physical exam. Recent lab results show a slight increase in blood glucose, which he attributes to consuming coffee before the test. His last glucose reading in November was normal. His cholesterol levels are now within normal limits, and liver enzymes are improving. Kidney function and electrolyte levels are normal. His prostate was checked previously and was normal. Blood pressure stable controlled on lisinopril 5 mg daily and take rosuvastatin 5 mg daily for dyslipidemia. He was previously off the cholesterol medication. He tore a muscle on his side prior to November and has recently started lifting weights and lb walking in early January, taking care to ease back into his routine. He has declined getting a colonoscopy, but agreed to perform a Cologuard stool- based DNA test. He has also declined the influenza vaccine. He does not smoke and does not drink alcohol. He has not had a recent eye exam but reported 20/20 vision on a recent test for his driving permit. [facility] Medical History (Updated 02/08/25 @ 08:40 by Dalila Vincent MD) Elevated liver enzymes Chronic pain of both knees Vitamin D deficiency COVID-19 vaccination declined Impaired fasting glucose Obesity (BMI 30.0-34.9) Essential hypertension Dyslipidemia H/O fracture of forearm Surgical History H/O inguinal hernia repair Family History Father No problems noted. Mother No problems noted. Brother Hx of myocardial infarction Social History Housing: Apartment Alcohol intake: never Patient Tobacco Use Status: Never used Tobacco e-Cigarette/Vaping Use: Never Used service: No Current occupational status: employed and disabled Cognitive needs: No Hearing needs: No Vision needs: No Questionnaire PHQ-9 Over the last 2 weeks, how often have you been bothered by any of the following problems? 1. Little interest or pleasure in doing things: not at all 2. Feeling down, depressed, or hopeless: not at all 3. Trouble falling or staying asleep, or sleeping too much: not at all 4. Feeling tired or having little energy: not at all 5. Poor appetite or overeating: not at all 6. Feeling bad about yourself - or that you are a failure or have let yourself or your family down: not at all 7. Trouble concentrating on things, such as reading the newspaper or watching television: not at all 8. Moving or speaking so slowly that other people could have noticed. Or the opposite - being so fidgety or restless that you have been moving around a lot more than usual: not at all 9. Thoughts that you would be better off or of hurting yourself in some way: not at all Total score: 0 Depression Screening Interpretation: Negative Depression Screening Done: Yes Source: Developed by Drs. Triston Ball, Kelsey Craft, Jorge Lezama and colleagues, with an educational lance from [employer]. Thrive Questionnaire Date Thrive assessed: 12/06/24 I am a: Patient What is your living situation today?: I have a steady place to live Within the past 12 months, did the food you bought not last and you didn't have the money to get more?: Never true Within the past 12 months, did you worry whether your food would run out before you got money to buy more?: Never true Do you have trouble paying for medicines?: No Do you have trouble getting transportation to medical appointments?: No Do you have trouble paying your heating and electricity bill?: No Do you have trouble taking care of your child, family member or friend?: No Do you have trouble with day-to-day activities such as bathing, preparing meals, shopping, managing finances, etc.?: No Are you currently unemployed and looking for a job?: No Are you interested in more education?: No Currently or been in a relationship where the following occur: No concerns reported THRIVE Score: 0 AUDIT C Alcohol Use Questionnaire (AUDIT-C) 1. How often do you have a drink containing alcohol?: Never 3. How often do you have six or more drinks on one occasion?: Never Total Score: 0 Score Reviewed/Action Taken: Yes LUIS-7 AMB Questionnaire LUIS-7 Date LUIS - 7 assessed: 12/06/24 Source: Developed by Drs. Triston Ball, Kelsey Craft, Jorge Lezama and colleagues, with an educational lance from [employer]. Review of Systems Const Denies body aches, Denies fatigue, Denies fever(s), Denies headache(s) and Denies weakness Eyes Denies change in vision ENT Denies dizziness, Denies headache(s) and Denies nasal congestion Card Denies chest pain, Denies lightheadedness, Denies palpitations and Denies dyspne a Resp Denies chest congestion, Denies cough, Denies dyspnea and Denies wheezing GI Denies abdominal pain, Denies change in bowel habits and Denies heartburn Denies dysuria, Denies urinary frequency and Denies urinary urgency Musc Reports as per HPI, Denies myalgias and Reports stiffness Skin/Breast Denies lesions and Denies rash Neuro Denies dizziness, Denies headache(s) and Denies weakness Psych Reports no additional complaints Endo Denies fatigue, Denies polydipsia, Denies polyuria and Denies palpitations Sesar/Lymph Denies easy bruising Aller/Immun Denies seasonal rhinorrhea and Denies wheezing Physical exam (Primary Care) Vital Signs: Last Vital Signs Temp 98.1 F 02/08/25 07:59 Pulse 65 02/08/25 07:59 Resp 17 02/08/25 07:59 BP 132/80 02/08/25 07:59 Pulse Ox 97 02/08/25 07:59 Oxygen Delivery Method Room Air 02/08/25 07:59 BMI result Body Mass Index 27.2 BMI Assessment/Plan discussion: High BMI High, discussed plan: lifestyle, weight reduction, dietary and physical activity Tobacco/Smoking Status: Tobacco use Status Tobacco use date assessed 02/08/25 02/08/25 08:03 Patient Tobacco Use Status Never used Tobacco 02/08/25 08:02 e-Cigarette/Vaping Use Never Used 02/08/25 08:02 Depression Screening Interpretation: Negative Thrive Assessment: Date of Thrive Assessment Date Thrive assessed 12/06/24 02/08/25 08:02 Currently or been in a relationship where the following occur: No concerns reported Const General: no acute distress and alert Nutritional Appearance: obese Orientation/consciousness: patient oriented x3 HENMT Face and sinus: Yes face symmetric Mouth: Normal oral and palatal mucosa present and moist mucous membranes Eyes General: appearance normal, both eyes and all related structures Neck Neck: Yes full ROM, Yes no lymphadenopathy and Yes supple Thyroid: Thyroid normal Resp Effort & Inspection: normal respiratory effort and able to speak in complete sentences Auscultation: clear to auscultation bilaterally Cardio Other: S1-S2 present regular rate and rhythm GI Other: Normal bowel sounds, soft, obese, nontender, no mass palpated Back/Spine/Pelvis Other: No CVA or back tenderness Neuro General: patient oriented x3, gait normal, moves all extremities, Normal light touch and pain sensation, no focal motor deficits and CN's II-XI intact bilaterally Extrem General: Yes full ROM, Yes no joint enlargement, Yes no clubbing, cyanosis or edema, Yes no calf tenderness and Yes normal gait Psych Appearance: grossly normal and well kempt Affect: normal affect Results Reviewed Results Reviewed: Name: Triston Machuca Age/Sex: 64/M : 1960 Unit#: [id number] Attend Dr: Dalila Vincent MD Re02/06/25 Status: DEP [facility] SPEC : [id number] OWEN: 02/06/25 STATUS: COMP REQ : [id number] RECD: 02/06/[address]: Dalila Vincent MD COMP: 02/06/25 ENTERED: 02/06/[address] [facility] [address]: ORDERED: CMP Fast, Lipid Panel Test Result Flag Reference Sodium 139 135-145 mmol/L Potassium 3.8 3.3-5.1 mmol/L CL 106 96-108 mmol/L CO2 25 22-29 mmol/L Gap 12 12-20 BUN 16 9-16 mg/dL Creat 1.05 0.5-1.4 mg/dL eGFR > 60 Chronic Kidney Disease: Estimated GFR < 60 mL/min/1.73m2 Severe Kidney Disease: Estimated GFR < 15 mL/min/1.73m2 FBS 123 H 60-99 mg/dL A fasting glucose from 100-125 mg/dl is considered impaired (pre-diabetes). CA 9.5 8.4-10.2 mg/dL Total Bili 0.5 0.0-1.0 mg/dL AST (GOT) 49 H 5-37 U/L ALT (GPT) 49 H 0-40 U/L Protein, Total 7.5 6.5-8.0 g/dL Alb 4.8 3.5-5.0 g/dL Triglyceride 132 <150 mg/dL Desirable Triglyceride: less than 150 mg/dL Borderline High Triglyceride 150-199 mg/dL High Triglyceride: 200-499 mg/dL Very High Triglyceride: greater than or equal to 5OO mg/dL Cholesterol 172 <200 mg/dL Desirable Cholesterol: less than 200 mg/dL Borderline High Cholesterol: 200-239 mg/dL High Cholesterol: greater than 239 mg/dL LDL Calculated 98 <100 mg/dL Desirable LDL: less than 100 mg/dL Near Optimal/Above Optimal LDL: 110-129 mg/dL Borderline High LDL: 130-159 mg/dL High LDL: 160-189 mg/dL Very High LDL: greater than or equal to 190 mg/dL HDL 48 >40 mg/dL Desirable HDL: greater than 40 mg/dL Note: This HDL assay may give artificially low results in patients with liver disease. Alk Phos 85 39-117 U/L Coding Level of Care Code Est Pt Prev Care 40-64y(61747) Diagnoses Dyslipidemia E78.5 Essential hypertension I10 Obesity (BMI 30.0-34.9) E66.9 Impaired fasting glucose R73.01 Elevated liver enzymes R74.8 Annual visit for general adult medical examination with abnormal findings Z00.01 Assessment & Plan Assessment & Plan (1) Dyslipidemia: Code(s): E78.5 - Hyperlipidemia, unspecified Category: Medical Plan: Continue rosuvastatin 5 mg daily (2) Essential hypertension: Code(s): I10 - Essential (primary) hypertension Category: Medical Plan: Continued on lisinopril 5 mg once a day, refill sent (3) Obesity (BMI 30.0-34.9): Code(s): E66.9 - Obesity, unspecified Category: Medical Plan: Reinforced importance of adhering to low-cholesterol, high-fiber diet, low in calories and getting regular exercise (4) Impaired fasting glucose: Code(s): R73.01 - Impaired fasting glucose Category: Medical Plan: Your previous fasting blood sugars were elevated above 100 mg/dL. Impaired glucose metabolism increases the risk for developing diabetes mellitus type 2, as well as heart attack and stroke later on. Lifestyle changes that promotes weight loss, healthy eating habits, and regular exercise are important, and can prevent the progression to diabetes (5) Elevated liver enzymes: Code(s): R74.8 - Abnormal levels of other serum enzymes Category: Medical Plan: Improvement in his liver enzymes noted. Continue with adherence to healthy eating habits, repeat labs again in July 2025 (6) Annual visit for general adult medical examination with abnormal findings: Code(s): Z00.01 - Encounter for general adult medical examination with abnormal findings Plan: Fasting lab results discussed with patient. Getting any vaccines. Cologuard test ordered for colon cancer screening Orders: Orders Lipid Panel 07/29/25 E66.9 - Obesity, unspecified, E78.5 - Hyperlipidemia, unspecified, I10 - Essential (primary) hypertension, R73.01 - Impaired fasting glucose, R74.8 - Abnormal levels of other serum enzymes Aspartate Amino Transferase 07/29/25 E66.9 - Obesity, unspecified, E78.5 - Hyperlipidemia, unspecified, I10 - Essential (primary) hypertension, R73.01 - Impaired fasting glucose, R74.8 - Abnormal levels of other serum enzymes Hemoglobin A1c 07/29/25 E66.9 - Obesity, unspecified, E78.5 - Hyperlipidemia, unspecified, I10 - Essential (primary) hypertension, R73.01 - Impaired fasting glucose, R74.8 - Abnormal levels of other serum enzymes Alanine Aminotransferase 07/29/25 E66.9 - Obesity, unspecified, E78.5 - Hyperlipidemia, unspecified, I10 - Essential (primary) hypertension, R73.01 - Impaired fasting glucose, R74.8 - Abnormal levels of other serum enzymes Basic Metabolic Panel Fasting 07/29/25 E66.9 - Obesity, unspecified, E78.5 - Hyperlipidemia, unspecified, I10 - Essential (primary) hypertension, R73.01 - Impaired fasting glucose, R74.8 - Abnormal levels of other serum enzymes Referrals Cologuard Test Z12.11 - Encounter for screening for malignant neoplasm of colon, Z12.12 - Encounter for screening for malignant neoplasm of rectum Medications: Refilled lisinopril 5 mg PO DAILY 90 tabs 4RF
== END 2025-02-08 08:40 | disposition home or self-care (01) ==
LOC: HO.HMCC 07:54
PROVIDERS: PCP Internal Medicine; Visit Provider Internal Medicine
DX: E78.5 Hyperlipidemia, unspecified (principal); I10 Essential (primary) hypertension; E66.9 Obesity, unspecified; R73.01 Impaired fasting glucose; R74.8 Abnormal levels of other serum enzymes; Z00.01 Encounter for general adult medical examination with abnormal findings

== ENCOUNTER → 2025-02-08 07:53 | Outpatient (BNVA) | payer OTHER, SELFPAY | PROVIDERS: PCP Internal Medicine; Visit Provider Internal Medicine | DX: Z00.01 Encounter for general adult medical examination with abnormal findings (principal); I10 Essential (primary) hypertension; E78.5 Hyperlipidemia, unspecified; R73.01 Impaired fasting glucose; E66.9 Obesity, unspecified; R74.8 Abnormal levels of other serum enzymes; Z12.11 Encounter for screening for malignant neoplasm of colon; Z28.29 Immunization not carried out because of patient decision for other reason | CPT/HCPCS: 99396 ==